=== PATIENT | male | born 1980 | race Caucasian/White ===

== ENCOUNTER 2020-04-17 09:50 | Emergency (ER) | payer MEDICAID ==
[2020-04-17 14:32] VITALS: BP 139/86
== END 2020-04-17 14:32 | disposition home or self-care (01) ==
LOC: ED 09:50
DX: S83.92XA Sprain of unspecified site of left knee, initial encounter (principal); S80.812A Abrasion, left lower leg, initial encounter; M25.462 Effusion, left knee; Z98.890 Other specified postprocedural states; W11.XXXA Fall on and from ladder, initial encounter; Y93.89 Activity, other specified; Y92.89 Other specified places as the place of occurrence of the external cause; Y99.8 Other external cause status
CPT/HCPCS: 90715; Q0092